=== PATIENT | male | born 1990 | race African-American/Black ===

== ENCOUNTER → 2016-10-30 | Outpatient (CLI) | payer MEDICAID | LOC: OD 09:24 | PROVIDERS: ATTEND Internal Medicine Medical Oncology | DX: D57.00 Hb-SS disease with crisis, unspecified (principal); M25.512 Pain in left shoulder; M25.522 Pain in left elbow ==

== ENCOUNTER → 2016-11-01 | Outpatient (CLI) | payer MEDICAID | LOC: RAD 15:45 | PROVIDERS: ATTEND Orthopaedic Surgery | DX: M25.522 Pain in left elbow (principal); M25.422 Effusion, left elbow | CPT/HCPCS: 73223; A9576 ==

== ENCOUNTER 2016-11-02 11:28 | Day surgery (SDC) | payer MEDICAID ==
[2016-11-02 11:58] LABS: HEMATOCRIT 27.2 % (37.9-51.0); HEMOGLOBIN 9.7 g/dL (13.5-17.0); HGB HCT DIFFERENCE 1.9; MEAN CORPUSCULAR HEMOGLOBIN 29.4 pg (27.0-33.4); MEAN CORPUSCULAR HGB CONC 35.6 g/dL (32.0-36.0); MEAN CORPUSCULAR VOLUME 83 fl (80-97); RED CELL DISTRIBUTION WIDTH 26.6 % (11.5-14.0)
[2016-11-02 12:14] LABS: ANION GAP 13 (5-19); BLOOD UREA NITROGEN 6 mg/dL (7-20); CALCIUM 9.8 mg/dL (8.4-10.2); CARBON DIOXIDE 27 mmol/L (22-30); CHLORIDE 104 mmol/L (98-107); CREATININE RESULT 0.55 mg/dL (0.52-1.25); GLUCOSE 91 mg/dL (75-110); POTASSIUM 4.7 mmol/L (3.6-5.0)
[2016-11-02 12:30] LABS: RED BLOOD COUNT 3.29 10^6/uL (4.35-5.55)
[2016-11-02] MEDS ORDERED: BACITRACIN INJ 50,000 UNIT VIAL ONE (12:37)
--- NOTE | 2016-11-02 14:21 | EKG REPORT ---
SEVERITY:- NORMAL ECG - SINUS RHYTHM : Confirmed by: Mary Cruz 02-Nov-2016 14:21:10
--- NOTE | 2016-11-02 14:57 | Operative Report ---
Operative Report DATE OF SURGERY: 11/02/16 PREOPERATIVE DIAGNOSIS: Pyarthrosis left elbow OPERATION: Left elbow arthrotomy, Irrigation debridement SURGEON: REBEKAH YANES ANESTHESIA: GA TISSUE REMOVED OR ALTERED: Cultures and fluid to microbiology ESTIMATED BLOOD LOSS: minimal INTRAOPERATIVE FINDINGS: Large amount of cloudy yellow fluid PROCEDURE: The patient in a right lateral decubitus position on the operating table the left upper extremity prepped and draped in sterile fashion. The limb was elevated for exsanguination tourniquet inflated 280 torr. A longitudinal incision measuring approximately 3 cm was made just proximal to lateral humeral epicondyle and sharp dissection is carried incision down to the lateral pillar. Blunt dissection was then used to enter the joint capsule both anteriorly and posteriorly. Cultures were taken with a swab. The underlying fluid was also aspirated with a syringe and sent to microbiology./Pathology. Best be described as a turbid yellow fluid. Pulse lavage was then used her great brought the anterior and posterior aspects of the elbow joint. The synovium was debrided using a curet. At this point the tourniquet was deflated. Hemostasis obtained with electrocautery. The wound is closed in 3 layers using interrupted 2-0 PDS suture. A sterile dressing is applied and the patient's returned to PACU in satisfactory condition.
[2016-11-02] MEDS ORDERED: MORPHINE SULFATE 10 MG/ML INJ IV PRN (15:13)
[2016-11-02] MEDS ORDERED: PROMETHAZINE HCL INJ 25 MG/1 ML VIAL IV PRN ×2 (15:13)
[2016-11-02] MEDS ORDERED: DIPHENHYDRAMINE HCL 50 MG/ML VIAL IV PRN (15:13)
[2016-11-02] MEDS ORDERED: FENTANYL CITRATE INJ/PF 100 MCG/2 ML AMPUL IV PRN ×3 (15:13)
[2016-11-02] MEDS ORDERED: OXYCODONE-ACETAMINOPHEN 5-325 MG TABLET PO PRN ×2 (15:13)
[2016-11-02] MEDS ORDERED: MEPERIDINE HCL/PF INJ 25 MG/1 ML DISP.SYRIN IV PRN (15:13)
[2016-11-02] MEDS ORDERED: FENTANYL CITRATE INJ/PF 100 MCG/2 ML AMPUL ONE (15:18)
[2016-11-02] MEDS ORDERED: RINGERS SOLUTION,LACTATED 1,000 ML IV PRN (15:24)
[2016-11-02] MEDS ORDERED: SUCCINYLCHOLINE CHLORIDE INJ 200 MG/10 ML VIAL ONE (15:44)
[2016-11-02] MEDS ORDERED: DEXAMETHASONE SOD PHOSPHATE INJ 4 MG/1 ML VIAL ONE (15:44)
[2016-11-02] MEDS ORDERED: ONDANSETRON HCL INJ/PF 4 MG/2 ML SDV ONE (15:44)
[2016-11-02] MEDS ORDERED: IBUPROFEN 800 MG TABLET PO PRN (15:46)
[2016-11-02] MEDS: OXYCODONE-ACETAMINOPHEN 5-325 MG TABLET PO PRN ×2 (17:14→20:53)
[2016-11-02] MEDS: CEFTRIAXONE 2 GM/D5W RTU 2 GM/50 ML RTUPB IV SCH (19:05)
[2016-11-02] MEDS: FOLIC ACID 1 MG TABLET PO SCH (21:49)
[2016-11-02] MEDS: HYDROXYUREA 500 MG CAPSULE PO SCH (21:51)
--- NOTE | 2016-11-03 06:51 | PDOC PROGRESS REPORT ---
Subjective Progress Note for:: 11/03/16 Subjective:: Patient with minimal complaints of pain Physical Exam Vital Signs: Temp Pulse Resp BP Pulse Ox 36.8 C 74 18 123/53 L 95 11/03/16 03:51 11/03/16 03:51 11/03/16 03:51 11/03/16 03:51 11/03/16 04:03 Pulse Oximeter Continuous Start: 11/02/16 16: 41 Freq: RTQ4 Status: Active Document 11/03/16 04:03 TPO (Rec: 11/03/16 04:04 TPO [id number]) Pulse Oximetry Assessment Oxygen Saturation (92-100) 95 Oxygen Flow Rate (L/min) 1.5 Oxygen Delivery Method Nasal Cannula Equipment Usage Equipment in Use Continuous SpO2 Machine # [id number] Intake & Output 11/01/16 11/02/16 11/03/16 06:59 06:59 06:59 Intake Total 2150 Output Total 10 Balance 2140 Weight 99.79 kg General appearance: PRESENT: no acute distress Head exam: PRESENT: normocephalic Respiratory exam: PRESENT: unlabored Cardiovascular exam: PRESENT: RRR Pulses: PRESENT: normal radial pulses GI/Abdominal exam: PRESENT: soft Rectal exam: PRESENT: deferred Extremities exam: PRESENT: other - Left elbow dressing with a small amount of old bloody drainage area. Active range of motion of the elbow is intact with minor discomfort at extremes. Distal neurovascular examination the hand is intact. Neurological exam: PRESENT: alert, awake, oriented to person, oriented to place , oriented to time, oriented to situation. ABSENT: motor sensory deficit Psychiatric exam: PRESENT: appropriate affect, normal mood. ABSENT: homicidal ideation, suicidal ideation Skin exam: PRESENT: dry, intact, warm. ABSENT: cyanosis, rash Results Laboratory Results: 11/02/16 11:49 11/02/16 11:49 11/02/16 11/02/16 11:49 11:49 WBC 11.0 H RBC 3.29 L Hgb 9.7 L Hct 27.2 L MCV 83 MCH 29.4 MCHC 35.6 RDW 26.6 H Plt Count 460 H Sodium 144.0 Potassium 4.7 Chloride 104 Carbon Dioxide 27 Anion Gap 13 BUN 6 L Creatinine 0.55 Est GFR ( Amer) > 60 Est GFR (Non-Af Amer) > 60 Glucose 91 Calcium 9.8 Impressions: Chest X-Ray 11/02/16 00:00 IMPRESSION: NO ACUTE RADIOGRAPHIC FINDING IN THE CHEST. Status: Imported from PACS Assessment & Plan - Diagnosis (1) Septic arthritis of elbow, left Is this a current diagnosis for this admission?: YesPlan: 25-year-old black male with sickle cell disease and a spontaneous onset of left elbow pain. He's postop day 1 IND. Intraoperative cultures are pending as is the Gram stain. Patient's on empiric Rocephin area. Plan will be to await the Gram stain and potentially discharge the patient on oral antibiotic. - Time Time Spent with patient: 15-24 minutes Anticipated discharge: Home Within: within 24 hours
[2016-11-03] MEDS: OXYCODONE-ACETAMINOPHEN 5-325 MG TABLET PO PRN ×3 (08:13→21:21)
[2016-11-03] MEDS ORDERED: HYDROXYUREA 500 MG CAPSULE PO SCH (10:00)
[2016-11-03] MEDS ORDERED: FOLIC ACID 1 MG TABLET PO SCH (10:00)
[2016-11-03] MEDS ORDERED: VANCOMYCIN HCL 0 MG in DEXTROSE 5%-WATER 250 ML IV NR (12:45)
[2016-11-03] MEDS: VANCOMYCIN HCL 1,500 MG in DEXTROSE 5%-WATER 250 ML IV SCH (15:31)
[2016-11-03] MEDS ORDERED: DIPHENHYDRAMINE HCL 50 MG/ML VIAL IV ONE (18:15)
[2016-11-03] MEDS: CEFTRIAXONE 2 GM/D5W RTU 2 GM/50 ML RTUPB IV SCH (18:21)
[2016-11-03 19:52] LABS: PATH REVIEW PATHOLOGIST REVIEWED
[2016-11-03] MEDS: HYDROXYUREA 500 MG CAPSULE PO SCH (21:20)
[2016-11-03] MEDS: FOLIC ACID 1 MG TABLET PO SCH (21:22)
[2016-11-04] MEDS: VANCOMYCIN HCL 1,500 MG in DEXTROSE 5%-WATER 250 ML IV SCH (00:38)
--- NOTE | 2016-11-04 07:07 | PDOC DISCHARGE SUMMARY ---
General - Admit/Disc Date/PCP Admission Date/Primary Care Provider: LUIS ROUSSEAU MD Discharge Date: 11/04/16 - Discharge Diagnosis (1) Septic arthritis of elbow, left Is this a current diagnosis for this admission?: Yes - Additional Information Discharge Diet: As Tolerated, Regular Discharge Activity: Activity As Tolerated, No Driving, No Lifting Over 10 Pounds , No Lifting/Push/Pulling, No tub bath Home Medications: Folic Acid [Folvite 1 mg Tablet] 1 mg PO DAILY #30 tablet 10/13/13 Hydroxyurea [Hydrea 500 mg Capsule] 1,000 mg PO DAILY #60 capsule 10/13/13 Ibuprofen 800 mg PO ASDIR PRN 11/02/16 Oxycodone HCl/Acetaminophen [Oxycodone-Acetaminophen 5-325] 1 each PO ASDIR PRN 11/02/16 History of Present Illness History of Present Illness: SHELBY GUERRA JR is a 25 year old male with sickle cell disease who presented as an outpatient with a one-week history of progressive left elbow swelling and pain. There was no traumatic antecedent. MRI scan suggested an underlying septic arthritis. An outpatient aspiration one was not diagnostic. The patient is admitted for a IND of the elbow. Hospital Course Hospital Course: Patient submitted to the operating room where he undergoes 90 of the left elbow. He continued to have significant analgesia and was regaining range of motion of the left elbow. The wound remains clean dry and intact. Cultures remained no growth so far. Physical Exam Vital Signs: Temp Pulse Resp BP Pulse Ox 36.8 C 86 18 122/55 L 93 11/04/16 04:21 11/04/16 04:21 11/04/16 04:21 11/04/16 04:21 11/04/16 04:21 Pulse Oximeter Continuous Start: 11/02/16 16: 41 Freq: RTQ4 Status: Active Document 11/04/16 04:18 JSM (Rec: 11/04/16 04:38 JSM [id number]) Pulse Oximetry Assessment Equipment Usage Equipment Standby Continuous SpO2 Machine # 5 Intake & Output 11/03/16 11/04/16 11/05/16 06:59 06:59 06:59 Intake Total 2150 2580 Output Total 10 Balance 2140 2580 Weight 99.79 kg General appearance: PRESENT: no acute distress Head exam: PRESENT: normocephalic Respiratory exam: PRESENT: unlabored Cardiovascular exam: PRESENT: RRR Pulses: PRESENT: normal radial pulses Vascular exam: PRESENT: normal capillary refill GI/Abdominal exam: PRESENT: soft Extremities exam: PRESENT: other - Left elbow wound remains clean dry and intact. Distal neurovascular examinations intact. Neurological exam: PRESENT: alert, awake, oriented to person, oriented to place , oriented to time, oriented to situation. ABSENT: motor sensory deficit Psychiatric exam: PRESENT: appropriate affect, normal mood. ABSENT: homicidal ideation, suicidal ideation Skin exam: PRESENT: dry, intact, warm. ABSENT: cyanosis, rash Results Laboratory Results: 11/02/16 11:49 11/02/16 11:49 11/02/16 11:49 WBC 11.0 H RBC 3.29 L Hgb 9.7 L Hct 27.2 L MCV 83 MCH 29.4 MCHC 35.6 RDW 26.6 H Plt Count 460 H Impressions: Chest X-Ray 11/02/16 00:00 IMPRESSION: NO ACUTE RADIOGRAPHIC FINDING IN THE CHEST. Status: Imported from PACS Plan Discharge Plan: Patient will be discharged on oral antibiotics, Cipro 500 mg by mouth twice a day 5 days. Follow-up will be with Dr. Chang in the [facility] for surgery on Sunday afternoon. Time Spent: Less than 30 Minutes
[2016-11-04 07:18] VITALS: BP 127/65
== END 2016-11-04 07:50 | disposition home or self-care (01) ==
LOC: OROUT 11:28 → 2N 16:24 → OROUT 11-04 07:50
PROVIDERS: ATTEND Orthopaedic Surgery
PROC: 0RBM0ZZ Excision of Left Elbow Joint, Open Approach (ICD-10-PCS; principal; 2016-11-02 14:00)
DX: M00.9 Pyogenic arthritis, unspecified (principal); D57.80 Other sickle-cell disorders without crisis; G47.33 Obstructive sleep apnea (adult) (pediatric); Z79.1 Long term (current) use of non-steroidal anti-inflammatories (NSAID); Z79.899 Other long term (current) drug therapy
CPT/HCPCS: 36415; 87205; 87070; 85027; 87075; 80048; 71010; 93005; 93010; 94762; 24000; J1100; J3010; J3490 ×2; J0330; J2405; J0696; 1710

== ENCOUNTER 2016-11-25 07:20 | Emergency (ER) | payer MEDICAID ==
[2016-11-25] MEDS ORDERED: NORMAL SALINE 1000 ML 1,000 ML IV ONE ×2 (08:11→09:58)
[2016-11-25] MEDS ORDERED: MORPHINE SULFATE 10 MG/ML INJ IV ONE (08:11)
--- NOTE | 2016-11-25 08:14 | ER Document Report ---
ED General - General Chief Complaint: Sickle Cell Crisis Stated Complaint: SICKLE CELL CRISIS Time Seen by Provider: 11/25/16 07:42 Mode of Arrival: Wheelchair Information source: Patient Notes: 2 presents complaining of generalized body aches and low back pain that started yesterday. Patient does report cough for the past week. No nausea or vomiting , no fever. Patient is concerned about sickle cell crisis. TRAVEL OUTSIDE OF THE [place] IN LAST 30 DAYS: No - HPI Onset: Yesterday Onset/Duration: Worse Quality of pain: Achy Pain Level: 5 Associated symptoms: Nonproductive cough. denies: Chest pain, Diarrhea, Fever, Nausea, Vomiting, Shortness of breath, Weakness Exacerbated by: Denies Relieved by: Denies Similar symptoms previously: Yes Recently seen / treated by doctor: No - Related Data Allergies/Adverse Reactions: ibuprofen [Ibuprofen] Allergy (Unknown, Verified 11/25/16 07:31) Past Medical History - General Information source: Patient - Social History Smoking Status: Never Smoker Frequency of alcohol use: Occasional Drug Abuse: None Lives with: Alone Family History: Reviewed & Not Pertinent Patient has suicidal ideation: No Patient has homicidal ideation: No - Medical History Medical History: Other - sickle cell disease - Past Medical History Cardiac Medical History: Denies: Hx Coronary Artery Disease, Hx Heart Attack, Hx Hypertension Pulmonary Medical History: Denies: Hx Asthma, Hx Bronchitis, Hx COPD, Hx Pneumonia Neurological Medical History: Reports: Hx Migraine. Denies: Hx Cerebrovascular Accident, Hx Seizures Renal/ Medical History: Denies: Hx Peritoneal Dialysis Musculoskeltal Medical History: Denies Hx Arthritis Past Surgical History: Reports: Other - abscess - Immunizations Hx Diphtheria, Pertussis, Tetanus Vaccination: Yes Review of Systems - Review of Systems Constitutional: No symptoms reported. denies: Fever, Recent illness EENT: Nose congestion Cardiovascular: No symptoms reported. denies: Chest pain Respiratory: No symptoms reported. denies: Cough, Short of breath Gastrointestinal: No symptoms reported. denies: Abdominal pain, Nausea, Vomiting Genitourinary: No symptoms reported. denies: Dysuria Male Genitourinary: No symptoms reported Musculoskeletal: Back pain, Muscle pain Skin: No symptoms reported. denies: Rash Hematologic/Lymphatic: No symptoms reported Neurological/Psychological: No symptoms reported. denies: Headaches Physical Exam - Vital signs Vitals: Temp Pulse Resp BP Pulse Ox 98.2 F 64 16 139/62 H 93 11/25/16 07:29 11/25/16 07:29 11/25/16 07:29 11/25/16 07:29 11/25/16 07:29 - General General appearance: Appears well, Alert In distress: None - HEENT Head: Normocephalic, Atraumatic Eyes: Scleral icterus - mild Conjunctiva: Normal Ears: Normal External canal: Normal Tympanic membrane: Normal Nasal: Clear rhinorrhea Mouth/Lips: Normal Mucous membranes: Normal Pharynx: Post nasal drainage. No: Peritonsillar abscess, Tonsillar hypertrophy Neck: Normal, Supple. No: Lymphadenopathy - Respiratory Respiratory status: No respiratory distress Chest status: Nontender Breath sounds: Nonproductive cough. No: Rales, Rhonchi, Stridor, Wheezing Chest palpation: Normal - Cardiovascular Rhythm: Regular Heart sounds: S1 appreciated, S2 appreciated Murmur: No - Abdominal Inspection: Normal Distension: No distension Bowel sounds: Normal Tenderness: Nontender Organomegaly: No organomegaly - Back Back: Tender - Lumbar paraspinal tenderness. No: CVA tenderness, Vertebra tenderness - Extremities General upper extremity: Normal inspection, Normal strength General lower extremity: Normal inspection, Normal strength - Neurological Neuro grossly intact: Yes Cognition: Normal Orientation: AAOx4 Letty Coma Scale Eye Opening: Spontaneous [place] Coma Scale Verbal: Oriented [place] Coma Scale Motor: Obeys Commands [place] Coma Scale Total: 15 - Psychological Associated symptoms: Normal affect, Normal mood - Skin Skin Temperature: Warm Skin Moisture: Dry Skin Color: Normal Course - Re-evaluation Re-evalutation: 11/25/16 09:16 Patient reports that pain initially was resolved but is starting to come back and is requesting additional medication. 11/25/16 09:[address] Ferrari who recommends consultation with patient's plumber cub. Spoke with Dr. Rousseau who recommends giving a dose of IV Levaquin and hydrating patient. Recommend offering outpatient treatment but if patient declines can be admitted to hospitalist services 11/25/16 11:13 pt feels he can manage his symptoms at home but would like one additional dose of pain medication prior to discharge. Discussed worsening signs or symptoms that patient should return immediately for. Patient and family verbalized understanding and agree with plan of care. Patient does have a follow-up appointment with Dr. Rousseau on Sunday which he intends to keep. - Vital Signs Vital signs: Temp Pulse Resp BP Pulse Ox 98.8 F 85 16 131/77 H 94 11/25/16 09:51 11/25/16 11:43 11/25/16 11:43 11/25/16 11:43 11/25/16 11:43 - Laboratory Result Diagrams: 11/25/16 08:15 11/25/16 08:15 Laboratory results interpreted by me: 11/25/16 11/25/16 11/25/16 08:15 08:15 08:30 WBC 14.8 H RBC 2.93 L Hgb 9.2 L Hct 25.3 L MCHC 36.6 H RDW 30.1 H Lymphocytes % (Manual) 11 L Abs Neuts (Manual) 11.4 H Abs Monocytes (Manual) 1.5 H Retic Count (auto) 8.63 H Absolute Retic 0.253 H Glucose 111 H Total Bilirubin 3.3 H Direct Bilirubin 0.9 H AST 98 H Total Protein 8.4 H Urine Protein 100 H Urine Blood MODERATE H Labs- Entire Visit 11/25/16 11/25/16 11/25/16 08:15 08:15 08:30 WBC 14.8 H RBC 2.93 L Hgb 9.2 L Hct 25.3 L MCV 86 MCH 31.5 MCHC 36.6 H RDW 30.1 H Plt Count 366 Total Counted 100 Seg Neutrophils % Not Reportable Seg Neuts % (Manual) 73 Band Neutrophils % 4 Lymphocytes % Not Reportable Lymphocytes % (Manual) 11 L Monocytes % Not Reportable Monocytes % (Manual) 10 Eosinophils % Not Reportable Eosinophils % (Manual) 2 Basophils % Not Reportable Basophils % (Manual) 0 Absolute Neutrophils Not Reportable Abs Neuts (Manual) 11.4 H Absolute Lymphocytes Not Reportable Abs Lymphs (Manual) 1.6 Absolute Monocytes Not Reportable Abs Monocytes (Manual) 1.5 H Absolute Eosinophils Not Reportable Absolute Eos (Manual) 0.3 Absolute Basophils Not Reportable Abs Basophils (Manual) 0.0 Nucleated RBCs 6 Giant Platelets PRESENT Platelet Comment ADEQUATE Polychromasia 1+ Poikilocytosis 3+ Anisocytosis 3+ Sickle Cells 1+ Target Cells 1+ Ovalocytes 1+ Retic Count (auto) 8.63 H Absolute Retic 0.253 H Sodium 140.3 Potassium 4.3 Chloride 103 Carbon Dioxide 27 Anion Gap 10 BUN 8 Creatinine 0.61 Est GFR ( Amer) > 60 Est GFR (Non-Af Amer) > 60 Glucose 111 H Calcium 9.4 Total Bilirubin 3.3 H Direct Bilirubin 0.9 H Indirect Bilirubin Not Reportable Neonat Total Bilirubin Not Reportable AST 98 H ALT 49 Alkaline Phosphatase 106 Total Protein 8.4 H Albumin 4.5 Urine Color YELLOW Urine Appearance CLEAR Urine pH 6.0 Ur Specific [place] 1.010 Urine Protein 100 H Urine Glucose (UA) NEGATIVE Urine Ketones NEGATIVE Urine Blood MODERATE H Urine Nitrite NEGATIVE Urine Bilirubin NEGATIVE Urine Urobilinogen NEGATIVE Ur Leukocyte Esterase NEGATIVE Urine WBC (Auto) 0 Urine RBC (Auto) 0 Squamous Epi Cells Auto <1 Urine Ascorbic Acid NEGATIVE 11/25/16 14:48 - Diagnostic Test Radiology reviewed: Reports reviewed Discharge - Discharge Clinical Impression: Sickle cell anemia with pain Low back pain Qualifiers: Chronicity: acute Back pain laterality: bilateral Sciatica presence: without sciatica Qualified Code(s): M54.5 - Low back pain Condition: Stable Disposition: HOME, SELF-CARE Instructions: Sickle Cell Crisis ([facility]), Oral Narcotic Medication ([facility]), IV Antibiotics ([facility]), Antibiotic Therapy ([facility]) Additional Instructions: Return immediately for any new or worsening symptoms, increased pain, fever, vomiting, or any new or worsening symptoms Followup with your primary care provider, call tomorrow to make a followup appointment Follow up with Dr Rousseau on Sunday for a recheck. Prescriptions: Levofloxacin [Levaquin 500 mg Tablet] 500 mg PO DAILY #9 tablet Oxycodone HCl/Acetaminophen [Percocet 5-325 mg Tablet] 1 - 2 tab PO ASDIR PRN # 25 tablet PRN Reason: Referrals: LUIS ROUSSEAU MD [ACTIVE STAFF] - 11/27/16
[2016-11-25 08:36] LABS: HEMATOCRIT 25.3 % (37.9-51.0); HEMOGLOBIN 9.2 g/dL (13.5-17.0); HGB HCT DIFFERENCE 2.3; MEAN CORPUSCULAR HEMOGLOBIN 31.5 pg (27.0-33.4); MEAN CORPUSCULAR HGB CONC 36.6 g/dL (32.0-36.0); MEAN CORPUSCULAR VOLUME 86 fl (80-97); RED BLOOD COUNT 2.93 10^6/uL (4.35-5.55); RED CELL DISTRIBUTION WIDTH 30.1 % (11.5-14.0); WHITE BLOOD COUNT 14.8 10^3/uL (4.0-10.5)
[2016-11-25 08:51] LABS: ALANINE AMINOTRANSFERASE 49 U/L (21-72); ALBUMIN 4.5 g/dL (3.5-5.0); ALKALINE PHOSPHATASE 106 U/L (38-126); ANION GAP 10 (5-19); ASPARTATE AMINO TRANSFERASE 98 U/L (17-59); BILIRUBIN,DIRECT 0.9 mg/dL (0.0-0.4); BILIRUBIN,TOTAL 3.3 mg/dL (0.2-1.3); BLOOD UREA NITROGEN 8 mg/dL (7-20); CALCIUM 9.4 mg/dL (8.4-10.2); CARBON DIOXIDE 27 mmol/L (22-30); CHLORIDE 103 mmol/L (98-107); CREATININE RESULT 0.61 mg/dL (0.52-1.25); GLUCOSE 111 mg/dL (75-110); POTASSIUM 4.3 mmol/L (3.6-5.0); SODIUM 140.3 mmol/L (137-145); TOTAL PROTEIN 8.4 g/dL (6.3-8.2)
[2016-11-25 09:02] LABS: BAND NEUTROPHILS % (MANUAL) 4 % (3-5); BASOPHILS % (MANUAL) 0 % (0-2); EOSINOPHILS % (MANUAL) 2 % (0-6); LYMPHOCYTES % (MANUAL) 11 % (13-45); NUCLEATED RED BLOOD CELLS 6 /100 WBC (0); TOTAL CELLS COUNTED 100
[2016-11-25 09:05] LABS: ANISOCYTOSIS 3+; OVALOCYTES 1+; POIKILOCYTOSIS 3+; POLYCHROMASIA 1+; TARGET CELLS 1+
[2016-11-25 09:07] LABS: APPEARANCE,URINE CLEAR; BILIRUBIN,URINE NEGATIVE (NEGATIVE); GLUCOSE, URINE NEGATIVE (NEGATIVE); KETONES,URINE NEGATIVE (NEGATIVE); LEUKOCYTE ESTERASE,URINE NEGATIVE (NEGATIVE); NITRITE,URINE NEGATIVE (NEGATIVE); PROTEIN,URINE 100 mg/dL (NEGATIVE); UROBILINOGEN,URINE NEGATIVE mg/dL (<2.0)
[2016-11-25] MEDS ORDERED: NORMAL SALINE 1000 ML 1,000 ML IV PRN (09:09)
[2016-11-25] MEDS ORDERED: HYDROMORPHONE HCL INJ/PF 2 MG/ML AMPULE IV ONE ×3 (09:09→11:13)
[2016-11-25] MEDS ORDERED: LEVOFLOXACIN 500 MG/D5W RTU 100 ML IV ONE (09:58)
[2016-11-25 11:43] VITALS: BP 131/77
== END 2016-11-25 11:55 | disposition home or self-care (01) ==
LOC: ER 07:20
DX: D57.1 Sickle-cell disease without crisis (principal); M54.5 Low back pain; R05 Cough; Z88.6 Allergy status to analgesic agent; J34.89 Other specified disorders of nose and nasal sinuses
CPT/HCPCS: 96376; 99284; 96361; 96375; 96365; 36415; 87040; 85025; 85045; 80053; 81001; 71020; J1956; J2270; J1170; J7030

== ENCOUNTER 2016-11-26 01:07 | Emergency (ER) | payer MEDICAID ==
[2016-11-26 01:27] VITALS: BP 139/78
[2016-11-26] MEDS ORDERED: NORMAL SALINE 1000 ML 1,000 ML IV PRN (03:25)
== END 2016-11-26 03:35 | disposition home or self-care (01) ==
LOC: ER 01:07
DX: Z53.9 Procedure and treatment not carried out, unspecified reason (principal); M54.9 Dorsalgia, unspecified